=== PATIENT | male | born 1960 | race Caucasian/White ===

== ENCOUNTER → 2018-03-16 | Outpatient (CLI) | payer OTHER ==
[2018-03-16 18:07] LABS: HEMATOCRIT 43.8 % (42.0-52.0); HEMOGLOBIN 14.6 g/dl (13.5-17.5); MEAN CORPUSCULAR HEMOGLOBIN 28.6 pg (27.0-33.0); MEAN CORPUSCULAR HGB CONC 33.3 g/dl (32.0-36.5); MEAN CORPUSCULAR VOLUME 85.9 fl (80.0-96.0); PLATELET COUNT, AUTOMATED 269 10^3/uL (150-450); RED CELL DISTRIBUTION WIDTH 11.8 % (11.5-14.5); WHITE BLOOD COUNT 9.9 10^3/uL (4.0-10.0)
== END ==
LOC: M LAB 17:01
DX: K62.5 Hemorrhage of anus and rectum (principal)
CPT/HCPCS: 85027

== ENCOUNTER → 2018-04-27 | Outpatient (CLI) | payer OTHER ==
[~2018-04-27] MED LIST: GASTROGRAFIN SOLUTION 30ML (Q9963) As Ordered; ISOVUE-370 76% 100ML VIAL (Q9967) As Ordered
== END ==
LOC: M RAD 13:10
DX: R19.4 Change in bowel habit (principal); K62.5 Hemorrhage of anus and rectum; Z80.0 Family history of malignant neoplasm of digestive organs

== ENCOUNTER 2018-11-10 07:14 | Day surgery (SDC) | payer OTHER ==
[~2018-11-10] VITALS: Ht 177.8 cm; Wt 80.7 kg
[~2018-11-10 07:14] MED LIST changes: +ASPI81TA85 PO; +BUSP10TA PO; +COLA100C5 PO; +CRES20TA2 PO; +CYCL10TA PO; +DRON1CAP3 PO; +FISH120016 PO; -GASTROGRAFIN SOLUTION 30ML (Q9963) As Ordered; -ISOVUE-370 76% 100ML VIAL (Q9967) As Ordered; +LIDO5DIS41 TOP; +LISI-538 PO; +MULTCAP PO; +NITR0.4D10 TD; +NITR0.4D6 TD; +OMEP40CA2 PO; +OXYC10TA12 PO; +OXYC20TA40 PO; +REST0.05 OU; +TIZA4CAP PO; +TRIC145T22 PO; +VALI5TAB PO
[2018-11-10] MEDS ORDERED: NS 1,000 ML IV ONE (08:00)
[2018-11-10] MEDS ORDERED: PROPOFOL 500 MG/50 ML VIAL As Ordered ONE (08:33)
[2018-11-10] MEDS ORDERED: LIDOCAINE 2% INJ 100 MG/5 ML SDV (FOR ANES.) As Ordered ONE (08:33)
[2018-11-10] MEDS ORDERED: ONDANSETRON 4MG/2ML VIAL (J2405) As Ordered ONE (08:37)
--- NOTE | 2018-11-10 09:06 | ROOR ---
Patient Name: Shaw Colin Procedure Date: 11/10/2018 8:28 AM Date of : 1960 Age: 58 Room: [facility] Gender: Male Note Status: Finalized Procedure: Colonoscopy Indications: Hematochezia, Constipation Providers: Yousif CREWS MD Referring MD: TRACI AVILES MD Requesting Provider: Medicines: Monitored Anesthesia Care Complications: No immediate complications. Procedure: Pre-Anesthesia Assessment: - The heart rate, respiratory rate, oxygen saturations, blood pressure, adequacy of pulmonary ventilation, and response to care were monitored throughout the procedure. The Colonoscope was introduced through the anus and advanced to the cecum, identified by appendiceal orifice and ileocecal valve. The colonoscopy was somewhat difficult due to inadequate bowel prep. Successful completion of the procedure was aided by lavage. The patient tolerated the procedure well. The quality of the bowel preparation was adequate to identify polyps 6 mm and larger in size. Findings: The perianal and digital rectal examinations were normal. (EXAM: Complete, PREP: Suboptimal) Two semi-pedunculated polyps were found in the sigmoid colon. The polyps were 5 to 6 mm in size. These polyps were removed with a cold snare. Resection and retrieval were complete. To prevent bleeding after the polypectomy, four hemostatic clips were successfully placed (MR conditional). There was no bleeding at the end of the procedure. Multiple medium-mouthed diverticula were found in the sigmoid colon. There was evidence of diverticular spasm. Internal hemorrhoids were found during retroflexion. The hemorrhoids were medium-sized. Impression: - (EXAM: Complete, PREP: Suboptimal) - Two 5 to 6 mm polyps in the sigmoid colon, removed with a cold snare. Resected and retrieved. Clips (MR conditional) were placed. - Moderate diverticulosis in the sigmoid colon. There was evidence of diverticular spasm. - Internal hemorrhoids. Recommendation: - Repeat colonoscopy in 2 years because the bowel preparation was suboptimal. - (Rec alternate colon preparation for next colonoscopy) Yousif Crews MD Yousif CREWS MD 11/10/2018 9:06:31 AM Electronically signed by Yousif CREWS MD Number of Addenda: 0 Note Initiated On: 11/10/2018 8:28 AM Estimated Blood Loss: Estimated blood loss: none.
[2018-11-10 09:31] VITALS: BP 112/73
== END 2018-11-10 09:38 | disposition home or self-care (01) ==
LOC: M OPP 07:14
PROVIDERS: ATTEND Internal Medicine Gastroenterology
DX: D12.5 Benign neoplasm of sigmoid colon (principal); K57.30 Diverticulosis of large intestine without perforation or abscess without bleeding; K64.0 First degree hemorrhoids; K92.1 Melena; K59.00 Constipation, unspecified
CPT/HCPCS: 45385; 88305; J2405

== ENCOUNTER → 2019-06-05 | Outpatient (REF) | payer MEDICARE, OTHER ==
[~2019-06-05] MED LIST changes: -OMEP40CA2 PO; +OMEP40CA97 PO
[2019-06-05 19:26] LABS: APPEARANCE, URINE CLEAR (CLEAR); BACTERIA, URINE AUTO NEGATIVE (NEGATIVE); BILIRUBIN, URINE AUTO NEGATIVE (NEGATIVE); BLOOD, URINE BLOOD NEGATIVE (NEGATIVE); COLOR, URINE STRAW (YELLOW); GLUCOSE, URINE (UA) AUTO NEGATIVE (NEGATIVE); KETONE, URINE AUTO NEGATIVE (NEGATIVE); LEUKOCYTE ESTERASE, URINE AUTO NEGATIVE (NEGATIVE); NITRITE, URINE AUTO NEGATIVE (NEGATIVE); PROTEIN, URINE AUTO NEGATIVE (NEGATIVE); RBC, URINE AUTO 0 /HPF (0-3); SPECIFIC GRAVITY URINE AUTO 1.005 (1.002-1.035); SQUAMOUS EPITHELIAL CELL UR AU 0 /HPF (0-6); UROBILINOGEN, URINE AUTO 0.2 mg/dL (0.0-2.0); WBC, URINE AUTO 0 /HPF (0-3)
== END ==
LOC: M SMT 18:19
PROVIDERS: ATTEND Nurse Practitioner Family
DX: R35.0 Frequency of micturition (principal)

== ENCOUNTER → 2023-05-04 | Outpatient (CLI) | payer MEDICARE, OTHER ==
[~2023-05-04] MED LIST changes: -ASPI81TA85 PO; +ASPI81TA86 PO; +CYCL-707 PO; -CYCL10TA PO; +DRON10CA7 PO; -DRON1CAP3 PO; -LISI-538 PO; +LISI20TA33 PO; +OMEP40CA4 PO; -OMEP40CA97 PO
== END ==
LOC: M PLAIMG 12:54
PROVIDERS: ATTEND Family Medicine
DX: R91.8 Other nonspecific abnormal finding of lung field (principal)

== ENCOUNTER 2025-04-30 08:04 | Day surgery (SDC) | payer MEDICARE, OTHER ==
[~2025-04-30] VITALS: Ht 177.8 cm; Wt 86.5 kg
[~2025-04-30 08:04] MED LIST changes: -DRON10CA7 PO; +DRON10CA8 PO; +ECOT81TA5 PO; +ESSETAB4 PO; +FLUT1BLS3; +LIDO1ADH93 TOP; -LIDO5DIS41 TOP; +OXYC-517 PO; +PREG150C2 PO; +ROSU20TA86 PO; +VITAD400CA PO
[2025-04-30] MEDS ORDERED: LIDOCAINE 2% 100 MG/5 ML SDV (FOR ANES.) As Ordered ONE (08:26)
[2025-04-30 09:09] VITALS: TEMP 98.5
[2025-04-30 09:26] VITALS: BP 105/63; O2SAT 96
== END 2025-04-30 09:31 | disposition home or self-care (01) ==
LOC: M OPP 08:04
PROVIDERS: ATTEND Internal Medicine Gastroenterology
DX: Z12.11 Encounter for screening for malignant neoplasm of colon (principal); K63.5 Polyp of colon; K57.30 Diverticulosis of large intestine without perforation or abscess without bleeding; K64.8 Other hemorrhoids; Z86.0100 Personal history of colon polyps, unspecified; Z80.0 Family history of malignant neoplasm of digestive organs; Z79.891 Long term (current) use of opiate analgesic; Z79.51 Long term (current) use of inhaled steroids; Z79.899 Other long term (current) drug therapy